=== PATIENT | male | born 1940 | race Caucasian/White ===

== ENCOUNTER 2017-11-06 13:42 | Inpatient (IN) | payer MEDICARE, BC ==
[~2017-11-06] VITALS: Ht 182.9 cm; Wt 83.0 kg
[2017-11-06] VITALS (7 sets, daily range): BP systolic 116–139; BP diastolic 68–86
[2017-11-06] MEDS ORDERED: LEVOFLOXACIN 750 MG/D5W 150 ML PIGGYBACK IV ONE (14:00)
[2017-11-06] MEDS ORDERED: VANCOMYCIN 1G/D5W 200 ML PIGGYBACK IV ONE (14:00)
[2017-11-06] MEDS ORDERED: IV NORMAL SALINE 1000 ML BAG IV ONE (14:00)
[2017-11-06] MEDS ORDERED: ACETAMINOPHEN 650 MG SUPP.RECT RC ONE ×2 (14:00→14:02)
[2017-11-06] MEDS ORDERED: DEXT15SY3 PO (14:12)
[2017-11-06] MEDS ORDERED: MAGN400O6 PO (14:12)
[2017-11-06] MEDS ORDERED: LEVO500T2 PO (14:12)
[2017-11-06] MEDS ORDERED: ACET-73 PO (14:12)
[2017-11-06] MEDS ORDERED: WARF7.5T23 PO (14:12)
[2017-11-06] MEDS ORDERED: ACET325T53 PO (14:12)
[2017-11-06] MEDS ORDERED: FAMO-132 PO (14:12)
[2017-11-06] MEDS ORDERED: DOCU-141 PO (14:12)
[2017-11-06] MEDS ORDERED: KETO120S2 TP (14:12)
[2017-11-06] MEDS ORDERED: BISA10SU12 RC (14:13)
[2017-11-06] MEDS ORDERED: PIPE3.3710 IV (14:13)
[2017-11-06] MEDS ORDERED: IPRA3AMP IH ×2 (14:13)
[2017-11-06] MEDS ORDERED: PRED10TA PO (14:13)
[2017-11-06] MEDS ORDERED: NA P133E RC (14:13)
[2017-11-06 14:19] LABS: BASOPHILS % (AUTO) 0.2 % (0.0-2.0); HEMATOCRIT 43.3 % (36.7-47.1); HEMOGLOBIN 14.8 g/dL (12.5-16.3); LYMPHOCYTES # (AUTO) 0.3 K/uL (20.0-40.0); LYMPHOCYTES % (AUTO) 2.7 % (20.5-51.5); MEAN CORPUSCULAR HEMOGLOBIN 29.3 uug (23.8-33.4); MEAN CORPUSCULAR HGB CONC 34 g/dL (32.5-36.3); MEAN CORPUSCULAR VOLUME 85.7 fL (73.0-96.2); MONOCYTES # (AUTO) 0.4 K/uL (2.0-10.0); MONOCYTES % (AUTO) 3.1 % (0.0-11.0); PLATELET COUNT (AUTO) 220 K/uL (152-348); RED BLOOD CELL COUNT(AUTO) 5.05 MIL/uL (4.06-5.63); WHITE BLOOD COUNT (AUTO) 11.7 K/uL (3.6-10.2)
[2017-11-06 14:25] LABS: CARBON DIOXIDE 32 mmol/L (21-32); CHLORIDE 97 mmol/L (98-107); CREATININE 1.7 mg/dL (0.6-1.3); GLUCOSE 165 mg/dL (74-106); UREA NITROGEN, BLOOD 25 mg/dL (7-18)
[2017-11-06] MEDS ORDERED: PIPERACILLIN/TAZOBACTAM/D5W 50 ML IV ONE (14:25)
[2017-11-06] MEDS: PIPERACILLIN/TAZOBACTAM/D5W 50 ML IV SCH ×2 (14:26→14:30)
[2017-11-06 14:31] LABS: ALANINE AMINOTRANSFERASE 17 U/L (16-63); ALKALINE PHOSPHATASE 44 U/L (50-136); ASPARTATE AMINOTRANSFERASE 20 U/L (15-37); BILIRUBIN,DIRECT 0.5 mg/dL (0.0-0.2); BILIRUBIN,TOTAL 1.4 mg/dL (0.2-1.0); TOTAL PROTEIN, SERUM 6.2 g/dL (6.4-8.2)
[2017-11-06] MEDS ORDERED: LEVOFLOXACIN 750MG/D5W 0 ML IV ONE (14:52)
[2017-11-06] MEDS ORDERED: VANCOMYCIN 1000 MG VIAL ONE (14:53)
[2017-11-06] MEDS ORDERED: LEVOFLOXACIN 750MG/D5W 150 ML IV ONE (14:54)
[2017-11-06] MEDS ORDERED: POTASSIUM CHLORIDE 50 ML IV SCH (15:45)
[2017-11-06] MEDS ORDERED: MEROPENEM 1 G in IV NORMAL SALINE 100 ML IV SCH (16:30)
[2017-11-06 17:15] LABS: ABG BASE EXCESS 6.1 mmol/L; ABG HCO3 28.8 mmol/L; ABG PCO2 35.4 mmHg (35.0-45.0); ABG PH 7.528 (7.350-7.450); ABG PO2 75.3 mmHg (75.0-100.0); ABG SITE RIGHT RADIAL; ABG TOTAL HEMOGLOBIN 14.3 G/dL (13.5-18.0); COHb 1.4 % (0.5-1.5); MetHb 0.2 % (0.0-1.5); O2Hb 94.4 % (94.0-97.0)
[2017-11-06] MEDS ORDERED: MORPHINE SULFATE 4 MG/1 ML DISP.SYRIN IV PRN (18:00)
[2017-11-06] MEDS ORDERED: ONDANSETRON 4 MG/2 ML VIAL IV PRN (18:00)
[2017-11-06] MEDS ORDERED: IPRATROPIUM BROMIDE 0.5 MG/2.5 ML NEBU NEB PRN (18:00)
[2017-11-06] MEDS ORDERED: ALBUTEROL SULFATE 2.5 MG/ 0.5 ML NEBU NEB PRN (18:00)
[2017-11-06] MEDS: POTASSIUM CHLORIDE 10 MEQ in IV DEXTROSE 5% 50 ML IV SCH ×2 (18:11→19:25)
[2017-11-06] MEDS: ACETAMINOPHEN 650 MG SUPP.RECT RC PRN (18:11)
[2017-11-06] MEDS: IV NS 1000 ML 1,000 ML IV PRN (18:12)
[2017-11-06] MEDS: MEROPENEM 1 G in IV NORMAL SALINE 100 ML IV SCH (18:25)
[2017-11-06] MEDS ORDERED: PIPERACILLIN/TAZOBACTAM/D5W 50 ML IV SCH (20:00)
[2017-11-06] MEDS ORDERED: MICAFUNGIN SODIUM 100 MG in IV NORMAL SALINE 100 ML IV SCH (20:00)
[2017-11-06] MEDS ORDERED: VORICONAZOLE 200 MG TABLET NG SCH (21:00)
[2017-11-07] VITALS (24 sets, daily range): BP systolic 126–161; BP diastolic 52–100
[2017-11-07] MEDS: MEROPENEM 1 G in IV NORMAL SALINE 100 ML IV SCH ×3 (05:09→21:33)
[2017-11-07] MEDS: IV NS 1000 ML 1,000 ML IV PRN ×2 (05:13→20:49)
[2017-11-07 05:14] LABS: BASOPHILS % (AUTO) 0.3 % (0.0-2.0); HEMATOCRIT 38.4 % (36.7-47.1); HEMOGLOBIN 13.1 g/dL (12.5-16.3); LYMPHOCYTES # (AUTO) 0.6 K/uL (20.0-40.0); LYMPHOCYTES % (AUTO) 4.9 % (20.5-51.5); MEAN CORPUSCULAR HEMOGLOBIN 29.1 uug (23.8-33.4); MEAN CORPUSCULAR HGB CONC 34 g/dL (32.5-36.3); MEAN CORPUSCULAR VOLUME 85.4 fL (73.0-96.2); MONOCYTES # (AUTO) 0.4 K/uL (2.0-10.0); MONOCYTES % (AUTO) 3.5 % (0.0-11.0); NEUTROPHILS # (AUTO) 11.5 K/uL (1.8-8.9); NEUTROPHILS % (AUTO) 91.3 % (38.5-71.5); PLATELET COUNT (AUTO) 157 K/uL (152-348); WHITE BLOOD COUNT (AUTO) 12.6 K/uL (3.6-10.2)
[2017-11-07 05:20] LABS: CARBON DIOXIDE 32 mmol/L (21-32); CHLORIDE 103 mmol/L (98-107); CREATININE 1.2 mg/dL (0.6-1.3); GLUCOSE 107 mg/dL (74-106); PHOSPHOROUS 2.6 mg/dL (2.5-4.9); UREA NITROGEN, BLOOD 25 mg/dL (7-18)
[2017-11-07 05:21] LABS: ALANINE AMINOTRANSFERASE 14 U/L (16-63); ALKALINE PHOSPHATASE 34 U/L (50-136); ASPARTATE AMINOTRANSFERASE 14 U/L (15-37); MAGNESIUM 1.7 mg/dL (1.8-2.4); TOTAL PROTEIN, SERUM 5.2 g/dL (6.4-8.2); VANCOMYCIN,RANDOM 2.4 ug/mL (18.0-26.0)
[2017-11-07 08:24] LABS: ABG BASE EXCESS 6.7 mmol/L; ABG HCO3 30.5 mmol/L; ABG PCO2 40.6 mmHg (35.0-45.0); ABG PH 7.494 (7.350-7.450); ABG PO2 94.7 mmHg (75.0-100.0); ABG SITE LEFT BRACHIAL; ABG TOTAL HEMOGLOBIN 14.1 G/dL (13.5-18.0); COHb 1.7 % (0.5-1.5); MetHb 0.1 % (0.0-1.5)
[2017-11-07] MEDS ORDERED: BISACODYL 10 MG SUPP.RECT RC PRN (09:00)
[2017-11-07] MEDS ORDERED: HOME MED MISCELLANEOUS XX SCH ×2 (09:00)
[2017-11-07] MEDS ORDERED: FAMOTIDINE 20 MG TABLET PO SCH ×2 (09:00→21:00)
[2017-11-07] MEDS ORDERED: ACETAMINOPHEN ES 500 MG TABLET PO PRN (09:00)
[2017-11-07] MEDS ORDERED: ALBUTEROL SULFATE 2.5 MG/ 0.5 ML NEBU NEB PRN (09:15)
[2017-11-07] MEDS ORDERED: IPRATROPIUM BROMIDE 0.5 MG/2.5 ML NEBU NEB PRN (09:15)
[2017-11-07] MEDS ORDERED: POTASSIUM CHLORIDE 20 MEQ POWDER PACKET PO ONE (09:30)
[2017-11-07] MEDS: DOCUSATE SODIUM 100 MG CAPSULE PO SCH ×2 (10:01→20:51)
[2017-11-07] MEDS: PANTOPRAZOLE SODIUM 40 MG VIAL IV SCH (10:01)
[2017-11-07] MEDS: METOPROLOL TARTRATE 25 MG TABLET PO SCH ×2 (10:06→20:52)
[2017-11-07] MEDS: VANCOMYCIN IV 1,250 MG in IV DEXTROSE 5% 500 ML IV SCH (10:08)
[2017-11-07] MEDS: ACETAMINOPHEN 325 MG TABLET PO PRN (13:34)
[2017-11-07] MEDS: GUAIFENESIN SUGAR FREE 100 MG/5 ML UDC PO PRN (13:34)
[2017-11-07] MEDS: ALBUTEROL SULFATE 2.5 MG/ 0.5 ML NEBU NEB SCH ×2 (13:42→19:16)
[2017-11-07] MEDS: IPRATROPIUM BROMIDE 0.5 MG/2.5 ML NEBU NEB SCH ×2 (13:42→19:17)
[2017-11-07] MEDS: MAGNESIUM SULFATE/D5W 100 ML IV SCH ×2 (14:33→15:36)
[2017-11-07] MEDS ORDERED: WARFARIN SODIUM 2 MG TABLET PO SCH (17:00)
[2017-11-07] MEDS ORDERED: Z GUARD REMEDY PASTE 57 GM TUBE TOP PRN (20:15)
[2017-11-07] MEDS: Z GUARD REMEDY PASTE 57 GM TUBE TOP SCH (20:50)
[2017-11-07] MEDS: ATORVASTATIN 20 MG TABLET PO SCH (20:51)
[2017-11-07] MEDS: VORICONAZOLE 200 MG TABLET PO SCH (20:52)
[2017-11-07 22:21] LABS: *BLOOD, URINE Trace-intact (NEGATIVE); *CLARITY,URINE CLEAR (CLEAR); *COLOR,URINE AMBER (YELLOW); *KETONES,URINE 1+ (NEGATIVE); *PROTEIN,URINE 2+ (NEGATIVE); LEUKOCYTE ESTERASE ,URINE NEGATIVE (NEGATIVE); NITRITE, URINE NEGATIVE (NEGATIVE); UGLUCOSE NEGATIVE (NEGATIVE)
[2017-11-07 22:30] LABS: *BILIRUBIN,URIN NEGATIVE (NEGATIVE)
[2017-11-07 22:34] LABS: COARSE GRANULAR CASTS,URINE 0-3 /LPF; MUCUS,URINE MANY /LPF (0-FEW); URINE AMORPHOUS URATE FEW /HPF
[2017-11-08] VITALS (15 sets, daily range): BP systolic 133–152; BP diastolic 78–93
[2017-11-08] MEDS: ALBUTEROL SULFATE 2.5 MG/ 0.5 ML NEBU NEB SCH ×4 (00:57→19:38)
[2017-11-08] MEDS: IPRATROPIUM BROMIDE 0.5 MG/2.5 ML NEBU NEB SCH ×4 (00:57→19:38)
[2017-11-08] MEDS: VANCOMYCIN IV 1,250 MG in IV DEXTROSE 5% 500 ML IV SCH ×2 (03:44→21:55)
[2017-11-08 05:09] LABS: BASOPHILS % (AUTO) 0.2 % (0.0-2.0); EOSINOPHILS # (AUTO) 0.1 K/uL (0.0-0.7); EOSINOPHILS % (AUTO) 0.6 % (0.0-7.0); HEMATOCRIT 37.8 % (36.7-47.1); HEMOGLOBIN 12.9 g/dL (12.5-16.3); LYMPHOCYTES # (AUTO) 0.5 K/uL (20.0-40.0); LYMPHOCYTES % (AUTO) 4.9 % (20.5-51.5); MEAN CORPUSCULAR HEMOGLOBIN 29.4 uug (23.8-33.4); MEAN CORPUSCULAR HGB CONC 34 g/dL (32.5-36.3); MEAN CORPUSCULAR VOLUME 86.4 fL (73.0-96.2); MONOCYTES # (AUTO) 0.4 K/uL (2.0-10.0); MONOCYTES % (AUTO) 3.9 % (0.0-11.0); NEUTROPHILS # (AUTO) 9.3 K/uL (1.8-8.9); NEUTROPHILS % (AUTO) 90.4 % (38.5-71.5); PLATELET COUNT (AUTO) 168 K/uL (152-348); RED BLOOD CELL COUNT(AUTO) 4.38 MIL/uL (4.06-5.63); WHITE BLOOD COUNT (AUTO) 10.3 K/uL (3.6-10.2)
[2017-11-08 05:22] LABS: ALANINE AMINOTRANSFERASE 15 U/L (16-63); ALKALINE PHOSPHATASE 35 U/L (50-136); ASPARTATE AMINOTRANSFERASE 17 U/L (15-37); BILIRUBIN,TOTAL 0.8 mg/dL (0.2-1.0); CARBON DIOXIDE 32 mmol/L (21-32); CHLORIDE 105 mmol/L (98-107); GLUCOSE 101 mg/dL (74-106); POTASSIUM 3.4 mmol/L (3.5-5.1); UREA NITROGEN, BLOOD 22 mg/dL (7-18)
[2017-11-08] MEDS: MEROPENEM 1 G in IV NORMAL SALINE 100 ML IV SCH ×3 (05:58→21:15)
[2017-11-08] MEDS: DOCUSATE SODIUM 100 MG CAPSULE PO SCH ×2 (09:28→20:03)
[2017-11-08] MEDS: PANTOPRAZOLE SODIUM 40 MG VIAL IV SCH (09:29)
[2017-11-08] MEDS: VORICONAZOLE 200 MG TABLET PO SCH ×2 (09:29→20:07)
[2017-11-08] MEDS: METOPROLOL TARTRATE 25 MG TABLET PO SCH ×2 (09:30→20:04)
[2017-11-08] MEDS: Z GUARD REMEDY PASTE 57 GM TUBE TOP SCH ×2 (09:35→20:05)
[2017-11-08] MEDS ORDERED: NORMAL SALINE FLUSH 10 ML DISP.SYRIN IV PRN (13:00)
[2017-11-08] MEDS ORDERED: POTASSIUM CHLORIDE 20 MEQ TAB.PRT.SR PO ONE (14:15)
[2017-11-08] MEDS: NORMAL SALINE FLUSH 10 ML DISP.SYRIN IV SCH ×2 (15:07→22:04)
[2017-11-08] MEDS: GUAIFENESIN SUGAR FREE 100 MG/5 ML UDC PO PRN (15:07)
[2017-11-08] MEDS ORDERED: NEUTRA PHOS PACKET PO ONE (15:45)
[2017-11-08] MEDS ORDERED: WARFARIN SODIUM 7.5 MG TABLET PO SCH (17:00)
[2017-11-08] MEDS: ACETAMINOPHEN 650 MG SUPP.RECT RC PRN (20:03)
[2017-11-08] MEDS: ATORVASTATIN 20 MG TABLET PO SCH (20:05)
[2017-11-09 00:23] VITALS: BP 150/94
[2017-11-09] MEDS: IPRATROPIUM BROMIDE 0.5 MG/2.5 ML NEBU NEB SCH ×4 (01:30→19:17)
[2017-11-09] MEDS: ALBUTEROL SULFATE 2.5 MG/ 0.5 ML NEBU NEB SCH ×4 (01:30→19:17)
[2017-11-09 04:00] VITALS: BP 154/94
[2017-11-09] MEDS: MEROPENEM 1 G in IV NORMAL SALINE 100 ML IV SCH ×3 (05:14→20:58)
[2017-11-09] MEDS: NORMAL SALINE FLUSH 10 ML DISP.SYRIN IV SCH ×3 (05:15→20:57)
[2017-11-09] MEDS: METOPROLOL TARTRATE 25 MG TABLET PO SCH ×2 (06:22→20:52)
[2017-11-09 06:34] LABS: BASOPHILS % (AUTO) 0.2 % (0.0-2.0); EOSINOPHILS # (AUTO) 0.1 K/uL (0.0-0.7); EOSINOPHILS % (AUTO) 1.2 % (0.0-7.0); HEMATOCRIT 38.7 % (36.7-47.1); HEMOGLOBIN 13.3 g/dL (12.5-16.3); LYMPHOCYTES # (AUTO) 0.6 K/uL (20.0-40.0); LYMPHOCYTES % (AUTO) 7.1 % (20.5-51.5); MEAN CORPUSCULAR HEMOGLOBIN 29.4 uug (23.8-33.4); MEAN CORPUSCULAR HGB CONC 34 g/dL (32.5-36.3); MEAN CORPUSCULAR VOLUME 85.6 fL (73.0-96.2); MONOCYTES # (AUTO) 0.4 K/uL (2.0-10.0); MONOCYTES % (AUTO) 4.7 % (0.0-11.0); NEUTROPHILS # (AUTO) 7.6 K/uL (1.8-8.9); NEUTROPHILS % (AUTO) 86.8 % (38.5-71.5); PLATELET COUNT (AUTO) 195 K/uL (152-348); RED BLOOD CELL COUNT(AUTO) 4.52 MIL/uL (4.06-5.63); WHITE BLOOD COUNT (AUTO) 8.7 K/uL (3.6-10.2)
[2017-11-09 06:54] LABS: ALANINE AMINOTRANSFERASE 31 U/L (16-63); ALKALINE PHOSPHATASE 37 U/L (50-136); ASPARTATE AMINOTRANSFERASE 41 U/L (15-37); BILIRUBIN,TOTAL 0.8 mg/dL (0.2-1.0); CARBON DIOXIDE 32 mmol/L (21-32); CHLORIDE 101 mmol/L (98-107); GLUCOSE 97 mg/dL (74-106); PHOSPHOROUS 2.2 mg/dL (2.5-4.9); POTASSIUM 3.3 mmol/L (3.5-5.1); TOTAL PROTEIN, SERUM 5.3 g/dL (6.4-8.2); UREA NITROGEN, BLOOD 16 mg/dL (7-18)
[2017-11-09] MEDS: DOCUSATE SODIUM 100 MG CAPSULE PO SCH ×2 (08:52→20:51)
[2017-11-09] MEDS: PANTOPRAZOLE SODIUM 40 MG VIAL IV SCH (08:52)
[2017-11-09] MEDS: VORICONAZOLE 200 MG TABLET PO SCH ×2 (08:52→20:51)
[2017-11-09] MEDS: Z GUARD REMEDY PASTE 57 GM TUBE TOP SCH ×2 (08:53→20:52)
[2017-11-09 11:34] VITALS: BP 146/83
[2017-11-09] MEDS ORDERED: POTASSIUM CHLORIDE 20 MEQ TAB.PRT.SR PO ONE (14:15)
[2017-11-09 15:36] VITALS: BP 133/79
[2017-11-09] MEDS ORDERED: NEUTRA PHOS PACKET PO ONE (16:30)
[2017-11-09] MEDS: VANCOMYCIN IV 1,250 MG in IV DEXTROSE 5% 500 ML IV SCH (17:41)
[2017-11-09 20:00] VITALS: BP 136/83
[2017-11-09] MEDS: ACETAMINOPHEN 325 MG TABLET PO PRN (20:51)
[2017-11-09] MEDS: ATORVASTATIN 20 MG TABLET PO SCH (20:52)
[2017-11-09] MEDS: GUAIFENESIN SUGAR FREE 100 MG/5 ML UDC PO PRN (20:55)
[2017-11-10 00:24] VITALS: BP 133/87
[2017-11-10] MEDS: IPRATROPIUM BROMIDE 0.5 MG/2.5 ML NEBU NEB SCH ×4 (00:52→18:50)
[2017-11-10] MEDS: ALBUTEROL SULFATE 2.5 MG/ 0.5 ML NEBU NEB SCH ×4 (00:52→18:49)
[2017-11-10 05:08] VITALS: BP 145/94
[2017-11-10] MEDS: MEROPENEM 1 G in IV NORMAL SALINE 100 ML IV SCH ×3 (06:15→19:57)
[2017-11-10] MEDS: NORMAL SALINE FLUSH 10 ML DISP.SYRIN IV SCH ×3 (06:15→19:58)
[2017-11-10] MEDS: VANCOMYCIN IV 1,250 MG in IV DEXTROSE 5% 500 ML IV SCH ×2 (06:16→19:44)
[2017-11-10 06:37] LABS: BASOPHILS % (AUTO) 0.3 % (0.0-2.0); EOSINOPHILS # (AUTO) 0.1 K/uL (0.0-0.7); EOSINOPHILS % (AUTO) 1.2 % (0.0-7.0); HEMATOCRIT 37.6 % (36.7-47.1); HEMOGLOBIN 12.9 g/dL (12.5-16.3); LYMPHOCYTES # (AUTO) 0.6 K/uL (20.0-40.0); LYMPHOCYTES % (AUTO) 7.4 % (20.5-51.5); MEAN CORPUSCULAR HEMOGLOBIN 29.4 uug (23.8-33.4); MEAN CORPUSCULAR HGB CONC 34 g/dL (32.5-36.3); MEAN CORPUSCULAR VOLUME 86.2 fL (73.0-96.2); MONOCYTES # (AUTO) 0.5 K/uL (2.0-10.0); NEUTROPHILS % (AUTO) 85.1 % (38.5-71.5); PLATELET COUNT (AUTO) 213 K/uL (152-348); RED BLOOD CELL COUNT(AUTO) 4.37 MIL/uL (4.06-5.63); WHITE BLOOD COUNT (AUTO) 8.3 K/uL (3.6-10.2)
[2017-11-10 06:48] LABS: ALANINE AMINOTRANSFERASE 43 U/L (16-63); ALKALINE PHOSPHATASE 38 U/L (50-136); ASPARTATE AMINOTRANSFERASE 55 U/L (15-37); BILIRUBIN,TOTAL 0.7 mg/dL (0.2-1.0); CARBON DIOXIDE 34 mmol/L (21-32); CHLORIDE 102 mmol/L (98-107); CREATININE 1.1 mg/dL (0.6-1.3); GLUCOSE 127 mg/dL (74-106); MAGNESIUM 1.8 mg/dL (1.8-2.4); PHOSPHOROUS 2.8 mg/dL (2.5-4.9); POTASSIUM 3.4 mmol/L (3.5-5.1); TOTAL PROTEIN, SERUM 5.2 g/dL (6.4-8.2); UREA NITROGEN, BLOOD 17 mg/dL (7-18)
[2017-11-10] MEDS ORDERED: PANTOPRAZOLE SODIUM 40 MG TABLET.DR PO SCH (07:00)
[2017-11-10 08:00] VITALS: BP 124/74
[2017-11-10] MEDS: DOCUSATE SODIUM 100 MG CAPSULE PO SCH ×2 (08:17→19:55)
[2017-11-10] MEDS: VORICONAZOLE 200 MG TABLET PO SCH ×2 (08:18→19:56)
[2017-11-10] MEDS: METOPROLOL TARTRATE 25 MG TABLET PO SCH ×2 (08:18→19:56)
[2017-11-10] MEDS: Z GUARD REMEDY PASTE 57 GM TUBE TOP SCH ×2 (08:19→19:57)
[2017-11-10] MEDS ORDERED: POTASSIUM CHLORIDE 50 ML IV SCH (09:00)
[2017-11-10] MEDS ORDERED: POTASSIUM CHLORIDE 10 MEQ in IV NORMAL SALINE 50 ML IV ONE (10:00)
[2017-11-10 11:46] VITALS: BP 107/65
[2017-11-10 15:50] VITALS: BP 127/81
[2017-11-10] MEDS ORDERED: WARFARIN SODIUM 2 MG TABLET PO SCH (17:00)
[2017-11-10] MEDS ORDERED: WARFARIN SODIUM 7.5 MG TABLET PO SCH (17:00)
[2017-11-10] MEDS: ACETAMINOPHEN 325 MG TABLET PO PRN (19:55)
[2017-11-10] MEDS: ATORVASTATIN 20 MG TABLET PO SCH (19:55)
[2017-11-10 19:56] VITALS: BP 127/81
== END 2017-11-10 21:02 | DRG 871 ==
LOC: ER 13:42 → TELE 15:52 → CCU 15:55 → TELE 11-08 18:56
PROVIDERS: ADMIT Internal Medicine Nephrology; ATTEND Internal Medicine Nephrology
DX: A41.9 Sepsis, unspecified organism (principal); J18.9 Pneumonia, unspecified organism; I21.A1 Myocardial infarction type 2; J96.01 Acute respiratory failure with hypoxia; E43 Unspecified severe protein-calorie malnutrition; G92 Toxic encephalopathy; E87.2 Acidosis; D68.9 Coagulation defect, unspecified; N17.9 Acute kidney failure, unspecified; E88.09 Other disorders of plasma-protein metabolism, not elsewhere classified; I95.9 Hypotension, unspecified; I08.2 Rheumatic disorders of both aortic and tricuspid valves; G93.89 Other specified disorders of brain; I48.2 Chronic atrial fibrillation; R65.20 Severe sepsis without septic shock; Z79.01 Long term (current) use of anticoagulants; Z86.718 Personal history of other venous thrombosis and embolism; Z87.01 Personal history of pneumonia (recurrent); G89.4 Chronic pain syndrome; E87.6 Hypokalemia; G47.33 Obstructive sleep apnea (adult) (pediatric); Z68.24 Body mass index [BMI] 24.0-24.9, adult; Z86.73 Personal history of transient ischemic attack (TIA), and cerebral infarction without residual deficits; Y95 Nosocomial condition; Z85.46 Personal history of malignant neoplasm of prostate; I12.9 Hypertensive chronic kidney disease with stage 1 through stage 4 chronic kidney disease, or unspecified chronic kidney disease; N18.3 Chronic kidney disease, stage 3 (moderate); Z86.018 Personal history of other benign neoplasm; K21.9 Gastro-esophageal reflux disease without esophagitis; J45.909 Unspecified asthma, uncomplicated; J40 Bronchitis, not specified as acute or chronic; G62.9 Polyneuropathy, unspecified; Z92.3 Personal history of irradiation; Z87.891 Personal history of nicotine dependence
CPT/HCPCS: 36415; 36600; 70030-TC; 71045; 82785; 83605; 83735; 84100; 85025; 85610; 85730; 86606; 87040; 87070; 87086; 87400; 92610; 93005; 93307; 94640; 94664; 97535; A4217; A4663; C9113; J1956; J2185; J2248; J2543; J3370; J3475; J3480; J3490; J3590; J7030; J7050; J7060